=== PATIENT | female | born 1985 | race Caucasian/White ===

== ENCOUNTER → 2018-03-12 | Outpatient (REF) | payer OTHER ==
[2018-03-12 15:52] LABS: BASO % 0.5 % (0.0-1.0); EOS # 0.1 10^3/uL (0.0-0.50); EOS % 0.9 % (0.0-3.0); HEMATOCRIT 43.3 % (36.0-47.0); HEMOGLOBIN 14.3 g/dl (12.0-15.5); IMMATURE GRANULOCYTE % 0.2 % (0-3.0); LYMPH # 1.8 10^3/uL (1.5-4.5); LYMPH % 27.7 % (24.0-44.0); MEAN CORPUSCULAR HEMOGLOBIN 29.3 pg (27.0-33.0); MEAN CORPUSCULAR VOLUME 88.7 fl (80.0-96.0); MONO # 0.4 10^3/uL (0.0-0.8); MONO % 5.4 % (0.0-5.0); NEUTROPHILS # 4.3 10^3/uL (1.8-7.7); NEUTROPHILS % 65.3 % (36.0-66.0); PLATELET COUNT, AUTOMATED 221 10^3/uL (150-450); RED BLOOD COUNT 4.88 10^6/uL (4.00-5.40); RED CELL DISTRIBUTION WIDTH 13.1 % (11.5-14.5); WHITE BLOOD COUNT 6.5 10^3/uL (4.0-10.0)
[2018-03-12 16:32] LABS: C REACTIVE PROTEIN QUANTITATIV < 0.30 MG/DL (0.00-0.30)
[2018-03-12 16:48] LABS: ERYTHROCYTE SEDIMENTATION RATE 5 mm/hr (0-20)
[2018-03-16 00:14] LABS: Lyme Disease IgG Ab 18 kDa Ban Present (.); Lyme Disease IgG Ab 23 kDa Ban Present (.); Lyme Disease IgG Ab 28 kDa Ban Present (.); Lyme Disease IgG Ab 30 kDa Ban Absent (.); Lyme Disease IgG Ab 39 kDa Ban Present (.); Lyme Disease IgG Ab 41 kDa Ban Present (.); Lyme Disease IgG Ab 45 kDa Ban Absent (.); Lyme Disease IgG Ab 58 kDa Ban Present (.); Lyme Disease IgG Ab 66 kDa Ban Present (.); Lyme Disease IgG Ab 93 kDa Ban Present (.); Lyme Disease IgG West Blot Int Positive (.); Lyme Disease IgM Ab 23 kDa Ban Present (.); Lyme Disease IgM Ab 39 kDa Ban Absent (.); Lyme Disease IgM Ab 41 kDa Ban Absent (.); Lyme Disease IgM Ab Quantitati <0.80 index (0.00-0.79); Lyme Disease IgM West Blot Int Negative (.)
== END ==
LOC: M SFHCPLAZ 13:07
DX: A69.20 Lyme disease, unspecified (principal)
CPT/HCPCS: 86140

== ENCOUNTER 2018-04-24 23:28 | Emergency (ER) | payer OTHER ==
[2018-04-25 01:09] LABS: BASO % 0.4 % (0.0-1.0); EOS # 0.1 10^3/uL (0.0-0.50); EOS % 0.5 % (0.0-3.0); HEMATOCRIT 41.2 % (36.0-47.0); HEMOGLOBIN 14.2 g/dl (12.0-15.5); IMMATURE GRANULOCYTE % 0.3 % (0-3.0); LYMPH % 21.7 % (24.0-44.0); MEAN CORPUSCULAR HEMOGLOBIN 29.5 pg (27.0-33.0); MEAN CORPUSCULAR HGB CONC 34.5 g/dl (32.0-36.5); MEAN CORPUSCULAR VOLUME 85.7 fl (80.0-96.0); MONO # 0.5 10^3/uL (0.0-0.8); MONO % 5.2 % (0.0-5.0); NEUTROPHILS # 6.7 10^3/uL (1.8-7.7); NEUTROPHILS % 71.9 % (36.0-66.0); PLATELET COUNT, AUTOMATED 201 10^3/uL (150-450); RED BLOOD COUNT 4.81 10^6/uL (4.00-5.40); RED CELL DISTRIBUTION WIDTH 12.3 % (11.5-14.5); WHITE BLOOD COUNT 9.4 10^3/uL (4.0-10.0)
[2018-04-25 01:27] LABS: CONTROL LINE HCG INT CTR LINE PRESENT; HCG, SERUM QUALITATIVE NEGATIVE (NEGATIVE)
[2018-04-25 01:38] LABS: ANION GAP 11 MEQ/L (8-16); BLOOD UREA NITROGEN 14 MG/DL (7-18); CALCIUM LEVEL 8.6 MG/DL (8.5-10.1); CARBON DIOXIDE LEVEL 24 MEQ/L (21-32); CHLORIDE LEVEL 110 MEQ/L (98-107); CK-MB VALUE MASS < 1.0 NG/ML (<3.6); CPK CREATINE PHOSPHOKINASE 75 U/L (26-192); CREATININE FOR GFR 0.85 MG/DL (0.55-1.30); GLOMERULAR FILTRATION RATE > 60.0 (>60); GLUCOSE, FASTING 104 MG/DL (70-100); MB/CK RELATIVE INDEX 1.33 (< OR =4); POTASSIUM SERUM 4.3 MEQ/L (3.5-5.1); SODIUM LEVEL 145 MEQ/L (136-145); TROPONIN I < 0.02 NG/ML (< 0.10)
[2018-04-25] MEDS: IBUPROFEN 600 MG TAB PO (02:20)
[2018-04-25] MEDS ORDERED: MINOXIDIL 10 MG TAB PO (02:38)
== END 2018-04-25 03:17 | disposition left against medical advice (07) ==
LOC: M ED 23:28
DX: R07.9 Chest pain, unspecified (principal)
CPT/HCPCS: 93005

== ENCOUNTER → 2019-04-12 | Outpatient (REF) | payer OTHER ==
[~2019-04-12] MED LIST: METF500T13 PO; METO37.5 PO
== END ==
LOC: M SFHCLERA 18:28
PROVIDERS: ATTEND Physician Assistant
DX: M54.5 Low back pain (principal)
CPT/HCPCS: 81002; 81025; 87088; 87186; G0463

== ENCOUNTER 2019-07-14 09:01 | Day surgery (SDC) | payer OTHER ==
[~2019-07-14] VITALS: Ht 160 cm; Wt 72.5 kg
[~2019-07-14 09:01] MED LIST changes: +ATIV1TAB10 PO; +LIDOCAINE 1% MDV 20ML VIAL SQ PRN; +LR 1,000 ML IV ONE; +METO1TAB32 PO
[2019-07-14] MEDS ORDERED: LIDOCAINE 2% INJ 100 MG/5 ML SDV (FOR ANES.) As Ordered ONE (10:02)
[2019-07-14] MEDS ORDERED: propofoL 200 MG/20 ML VIAL As Ordered ONE (10:02)
[2019-07-14] MEDS ORDERED: fentaNYL 100 MCG/2 ML INJECTION (J3010) As Ordered ONE (10:02)
[2019-07-14] MEDS ORDERED: MIDAZOLAM INJ 2 MG/2 ML VIAL (J2250) As Ordered ONE (10:03)
[2019-07-14] MEDS ORDERED: LIDOCAINE W/EPINEPHRINE 1% 20ML VIAL As Ordered ONE (11:56)
[2019-07-14] MEDS ORDERED: GLYCOPYRROLATE INJ 0.2 MG/ML 2 ML VIAL As Ordered ONE (12:11)
[2019-07-14] MEDS ORDERED: KETOROLAC 60 MG/2 ML VIAL (J1885) As Ordered ONE (12:19)
[2019-07-14] MEDS ORDERED: ONDANSETRON 4MG/2ML VIAL (J2405) As Ordered ONE (12:19)
[2019-07-14] MEDS ORDERED: ONDANSETRON 4MG/2ML VIAL (J2405) IV PRN (12:45)
[2019-07-14] MEDS ORDERED: fentaNYL 100 MCG/2 ML INJECTION (J3010) IV PRN (12:45)
[2019-07-14] MEDS ORDERED: oxyCODONE 5MG TAB PO PRN (12:45)
[2019-07-14] MEDS ORDERED: LR 1,000 ML IV SCH (12:45)
[2019-07-14 13:25] VITALS: BP 103/62
--- NOTE | 2019-07-14 14:52 | POST-OPPD ---
Postoperative Procedure Note Date Of Procedure: Jul 14, 2019 PREOPERATIVE DIAGNOSIS: High Grade Cervical Dysplasia POSTOPERATIVE DIAGNOSIS: HIgh Grade Cervical Dysplasia FINDINGS: Decreased lugols uptake posterior transformation zone PROCEDURE: LEEP SURGEON: Ye Jordan DO [employer]: NONE ANESTHESIA: General ESTIMATED BLOOD LOSS: 20cc REPLACED: 1000 cc LR DRAINS: none COMPLICATIONS: none Detailed Procedure Note: Indications: Patient is a 34 yo with High Grade squamous intraepithelial lesion. Patient with significant anxiety and did not tolerate colposcopy well and desires to have LEEP procedure under general . Material to lab: LEEP specimen, ECC Description of procedure: The risks, benefits, indications and alternatives of the procedure were reviewed with the patient and informed consent was obtained. Risk of bleeding, infection, pain, need for repeat procedure, increased risk of delivery discussed with patient. She expresses understanding and desires to proceed. Patient was brought to OR with IV running. Patient placed under general anesthesia. Placed in lithotomy position. Vaginal and perineum prepped and draped. An insulated speculum placed in the vagina and cervix identified. Transformation zone visualized. Paracervical block performed using Lidocaine 1% with epi (18cc used). Parous appearing cervix. Lugos applied. Decreased uptake noted around posterior transformation zone. Loop caudery size [id number] used. Power set to 60/60. Posterior to anterior pass x 2, one for the posterior and second pass for anterior cervix. Cervix cauderized thoroughly, hemostatic. ECC performed and cytobrush used to collect specimen. Monsels placed. All instruments removed from vagina. Count correct x 2. DO JENNY Jordan LUAT N. DO Jul 14, 2019 14:52
== END 2019-07-14 13:30 | disposition home or self-care (01) ==
LOC: M SDC 09:01
PROVIDERS: ATTEND Obstetrics & Gynecology
DX: N87.0 Mild cervical dysplasia (principal); R87.810 Cervical high risk human papillomavirus (HPV) DNA test positive; F41.9 Anxiety disorder, unspecified; Z91.040 Latex allergy status; Z91.013 Allergy to seafood; Z88.1 Allergy status to other antibiotic agents; Z88.0 Allergy status to penicillin; Z88.8 Allergy status to other drugs, medicaments and biological substances; Z79.899 Other long term (current) drug therapy
CPT/HCPCS: 57522; 81025; 88305; 88307; 88342; J1885; J2250; J2405; J3010